=== PATIENT | male | born 1960 | race Caucasian/White ===

== ENCOUNTER 2016-11-08 07:45 | Inpatient (IN) | payer BC ==
[~2016-11-08] VITALS: Ht 185.4 cm; Wt 93.9 kg
[2016-11-08 08:23] LABS: BASOPHIL % 0.2 % (0-2); PLATELET COUNT 193 x10^3mcL (130-400); RED CELL DISTRIBUTION WIDTH 13.7 % (11.5-14.5)
[2016-11-08 08:28] LABS: CALCIUM 9.2 mg/dL (8.5-10.1); CARBON DIOXIDE 26.4 mmol/L (21-32); CHLORIDE SERUM 102 mmol/L (98-107); CREATININE SERUM 1.1 mg/dL (0.7-1.3); GFR1 > 60 mL/min; GLUCOSE SERUM 148 mg/dL (74-106); POTASSIUM SERUM 4.3 mmol/L (3.5-5.1); SODIUM SERUM 140 mmol/L (136-145)
[2016-11-08 08:32] LABS: ALBUMIN 4.2 g/dL (3.4-5.0); ALKALINE PHOSPHATASE 55 U/L (46-116); ALT/SGPT 45 U/L (16-63); AST/SGOT 25 U/L (15-37); BILIRUBIN TOTAL 1.2 mg/dL (0.20-1.00); TOTAL PROTEIN, SERUM 7.2 g/dL (6.4-8.2)
[2016-11-08 08:35] LABS: AMPHETAMINE QUAL UR NONE DETECTED (NEG <=1000)
[2016-11-08] MEDS ORDERED: DIFLUCAN200 MG PO (09:36)
[2016-11-08 10:51] LABS: microscopic required? NO
[2016-11-08 11:07] LABS: CHOLESTEROL/HDL RATIO 2.2
[2016-11-08 11:11] LABS: T3 TOTAL 1.43 ng/mL
[2016-11-08 11:15] LABS: FREE T4 1.19 ng/dL (0.76-1.46); FREE THYROXINE INDEX 3.1 ug/dL (1.4-4.5); T4(THYROXINE) 9.4 ug/dL (4.7-13.3)
[2016-11-08 11:23] LABS: UA SPECIFIC GRAVITY <=1.005 (1.005-1.035); urine erythrocyte NEGATIVE (NEGATIVE)
[2016-11-08 13:02] VITALS: BP 107/66
[2016-11-08 14:02] VITALS: BP 107/66
[2016-11-08 17:43] VITALS: BP 121/86
[2016-11-08 20:40] VITALS: BP 103/59
[2016-11-09 05:25] VITALS: BP 97/55
[2016-11-09 06:07] LABS: BASOPHIL % 0.7 % (0-2); PLATELET COUNT 168 x10^3mcL (130-400); RED CELL DISTRIBUTION WIDTH 14.2 % (11.5-14.5)
[2016-11-09 06:19] LABS: CALCIUM 8.1 mg/dL (8.5-10.1); CARBON DIOXIDE 27.5 mmol/L (21-32); CHLORIDE SERUM 109 mmol/L (98-107); GFR1 > 60 mL/min; GLUCOSE SERUM 99 mg/dL (74-106); PHOSPHOROUS 3.3 mg/dL (2.5-4.9); POTASSIUM SERUM 4.5 mmol/L (3.5-5.1); SODIUM SERUM 143 mmol/L (136-145)
[2016-11-09 09:44] VITALS: BP 102/63
[2016-11-09 15:07] VITALS: BP 102/63
== END 2016-11-09 16:30 | disposition home or self-care (01) | DRG 206 ==
LOC: ED 07:45 → DU 10:10
PROVIDERS: Emergency Medicine; ADMIT Family Medicine
PROC: 4A02X4Z Measurement of Cardiac Electrical Activity, External Approach (ICD-10-PCS; principal; 2016-11-08)
DX: M94.0 Chondrocostal junction syndrome [Tietze] (principal); B38.0 Acute pulmonary coccidioidomycosis; G90.9 Disorder of the autonomic nervous system, unspecified; J45.909 Unspecified asthma, uncomplicated; F41.9 Anxiety disorder, unspecified; F43.10 Post-traumatic stress disorder, unspecified; F43.20 Adjustment disorder, unspecified; Z90.49 Acquired absence of other specified parts of digestive tract; Z93.6 Other artificial openings of urinary tract status
CPT/HCPCS: 80307; 82962; 83880; 84439; J1450; J2270; J2405; J7030; J7620; J7633; Q0092